=== PATIENT | female | born 1975 | race Caucasian/White ===

== ENCOUNTER → 2023-09-15 13:54 | Outpatient (REF) | payer OTHER, SELFPAY | LOC: HWWDC 13:54 | PROVIDERS: ATTENDING PHYSICIAN Obstetrics & Gynecology Gynecology; FAMILY PHYSICIAN Physician Assistant Medical | DX: Z12.31 Encounter for screening mammogram for malignant neoplasm of breast (principal) | CPT/HCPCS: 77063; 77067 ==

== ENCOUNTER 2023-11-03 15:54 | Day surgery (SDC) | payer OTHER, SELFPAY ==
[2023-11-03] VITALS (10 sets, daily range): BP systolic 92–126; BP diastolic 52–89
[2023-11-03 12:22] LABS: % Basophils 0.7 % (0-2); % Eosinophils 2.8 % (0-6); % Immature Granulocytes 0.3 % (0-0.5); % Lymphocytes 19.2 % (20.5-51.1); % Monocytes 8.7 % (1.7-9.3); % Neutrophils 68.3 % (42.2-75.2); Absolute Basophils 0.1 10^3/uL (0-0.2); Absolute Eosinophils 0.3 10^3/uL (0-0.7); Absolute Lymphocytes 2.2 10^3/uL (1.2-3.4); Absolute Neutrophils 7.8 10^3/uL (1.4-6.5); Hematocrit 36.8 % (37.0-47.0); Hemoglobin 12.3 g/dL (12.0-16.0); Mean Corp Hgb Conc. 33.4 g/dL (33.0-37.0); Mean Corpuscular Hgb 28.9 pg (27.0-31.0); Mean Corpuscular Volume 86.4 fL (81.0-99.0); Mean Platelet Volume 9.2 fL (7.4-10.4); Nucleated Red Blood Cells % 0 %; Platelet Count 269 10^3/uL (130-400); Red Blood Cell Count 4.26 10^6/uL (4.20-5.40); Red Cell Dist. Width 13.6 % (11.5-14.5); White Blood Cell Count 11.5 10^3/uL (4.8-10.8)
--- NOTE | 2023-11-03 12:29 | ED.GENMED ---
History of Present Illness
General
Chief Complaint: Abdominal Pain
Source: patient
Exam Limitations: none
Time Seen by Provider: 11/03/23 12:29
Nursing documentation reviewed up to this point in time: agreed with
Travel History
Have you had any contact with someone who has COVID-19?: No
Do you have any symptoms of coronavirus? Fever > 100 degrees, chills, cough, shortness of breath, sore throat, loss of taste or smell, muscle aches, or headache?: No
History of Present Illness
History of Present Illness:
This is a 48-year-old female with past medical history of hypothyroidism, migraine disorder presenting emergency department today with concerns of right-sided lower abdominal pain that radiates to the back as well as burning with urination for the
past 3 days. Patient has had nausea and vomiting with this and notes a fever of 102 at 3 AM this morning. Patient has taken Tylenol at 5 AM and ibuprofen at 9 AM today. Patient also took Azo today to help with the burning sensation. Patient went
to see her primary care provider today who sent her to the emergency department for concerns of possible appendicitis. Patient states that she has a past abdominal surgical history of a left nephrectomy and but denies any other abdominal
surgeries. Patient denies any constipation or diarrhea. Patient denies melena.
Past History
Past History
ED Past Medical History: None
ED Past Surgical History: None
Social History
Personal:
Living: with family
Review of Systems
Review of Systems
All Other Systems: ROS reviewed and negative except as documented in HPI and ROS
Phy Exam
Physical Exam
Physical Exam:
General: Patient is well appearing and in no acute distress; non-toxic
Skin: Warm and dry, no rashes or lesions
Head: Normocephalic, atraumatic
Eyes: Sclera non-icteric. EOMs intact. PERRLA.
Cardiac: Regular rate and rhythm, no murmurs
Peripheral Vascular: No lower extremity swelling or edema
Pulm: Normal respiratory effort, no wheezes, rales, or rhonchi.
Abdomen: Patient has moderate right-sided abdominal tenderness with guarding present as well as positive left-sided rebound tenderness. No CVA tenderness. No palpable masses
Musculoskeletal: No CVA tenderness bilaterally. No tenderness palpation of the para lumbar muscles
Neuro: CN II-XII intact, no focal neurologic deficits. PERRLA.
Psychiatric: Appropriate mood and affect.
Course
Orders/Labs/Results
Orders:
Orders
11/03/23 11:00
Test Result ONCE
11/03/23 12:04
Complete Blood Count/With Diff Urgent
Comprehensive Metabolic Panel Urgent
HCG, Serum Qualitative Screen Urgent
Lipase Urgent
Urinalysis Reflex To Culture Urgent
Date Specimen was Collected: 11/03/23
Time Specimen was Collected: 11:00
Urine Microscopic Reflex Cult Urgent
Urine Culture Urgent
ROBLES Source: U
Specimen Description:
Date Specimen was Collected: 11/03/23
Time Specimen was Collected: 11:00
11/03/23 12:47
0.9% Sodium Chloride 500 ml [Nss] 500 ml IV BOLUS
Ketorolac [Toradol] 15 mg IV NOW STA
Ondansetron Injectable [Zofran] 4 mg IV NOW STA
11/03/23 13:28
CT Abd/pelvis W Iv Cont Urgent
Comment:
Reason For Exam: RLQ pain
11/03/23 15:25
Dexamethasone Sod Phosphate [Decadron] 20 mg .ROUTE .STK-MED ONE
Lidocaine HCl/Pf [Xylocaine-Mpf 1% Vial] 50 mg .ROUTE .STK-MED ONE
Ondansetron Injectable [Zofran] 4 mg .ROUTE .STK-MED ONE
Propofol [Diprivan] 20 ml .ROUTE .STK-MED
Rocuronium [place] [Rocuronium] 50 mg .ROUTE .STK-MED ONE
11/03/23 15:38
HYDROmorphone [Dilaudid] 0.25 mg IV PACU-Q5MPRN PRN
HYDROmorphone [Dilaudid] 0.5 mg IV PACU-Q5MPRN PRN
Ondansetron Injectable [Zofran] 4 mg IV PACU-ONCEPRN PRN
Prochlorperazine [Compazine] 5 mg IV PACU-ONCEPRN PRN
Notify MD As Directed
Notify physician if: for SDS patients with known or suspected sleep obstructive sleep apnea, monitor in the
PACU.
Notify MD for any apneic/desaturation episodes
O2 Therapy [RESP] Urgent
Titrate/Wean O2 to maintain O2 sat greater than (%): 92
Special Instructions: -Provide supplemental oxygen to achieve O2 sat of 92% or greater.
-After 15 min, may wean O2 and discontinue if patient is able to maintain O2 sat of 92%
or greater during recovery period.
If patient is a discharge home, without oxygen therapy, notify anestheiologist if
unable to maintain O2 SAT of 92% or greater on room air for MD clearance.
11/03/23 15:42
Bupivacaine Mpf 0.25% [Sensorcaine-Mpf 0.25% Vial] 30 ml .ROUTE .STK-MED ONE
Bupivacaine Pf 0.5% [Sensorcaine 0.5% Single Dose] 30 ml .ROUTE .STK-MED ONE
Midazolam HCl [Versed] 2 mg .ROUTE .STK-MED ONE
11/03/23 15:43
Fentanyl Citrate/Pf [Sublimaze] 100 mcg .ROUTE .STK-MED ONE
11/03/23 15:45
Normosol (Mult Electrolytes) [Normosol-R] 1,000 ml IV PER PROTOCOL
11/03/23 15:48
Piperacillin/Tazo 3.375 Gram [Zosyn] 3.375 gram in 50 ml IV NOW
11/03/23 15:49
Piperacillin/Tazo 3.375 Gram [Zosyn] 3.375 gram in 50 ml .ROUTE .STK-MED
11/03/23 16:00
Normosol (Mult Electrolytes) [Normosol-R] 1,000 ml IV PER PROTOCOL
11/03/23 16:16
Piperacillin/Tazo 3.375 Gram [Zosyn] 3.375 gram in 50 ml IV NOW
11/03/23 16:19
HYDROmorphone [Dilaudid] 0.25 mg IV PACU-Q5MPRN PRN
HYDROmorphone [Dilaudid] 0.5 mg IV PACU-Q5MPRN PRN
Ondansetron Injectable [Zofran] 4 mg IV PACU-ONCEPRN PRN
Prochlorperazine [Compazine] 5 mg IV PACU-ONCEPRN PRN
11/03/23 16:30
HYDROmorphone [Dilaudid] 1 mg .ROUTE .STK-MED ONE
11/03/23 16:34
Acetaminophen 1000MG/100Ml [Ofirmev] 1,000 mg in 100 ml .ROUTE .STK-MED
11/03/23 16:37
Sugammadex Sodium [Bridion] 200 mg .ROUTE .STK-MED ONE
11/03/23 16:43
OR Pathology Routine
Pre-Operative Diagnosis: appendicitis
Operative Procedure: laparoscopic appendectomy
Surgeon: janell
Circulating Nurse: thaddeus
Specimen Type: appendix
11/03/23 16:59
Discharge Patient As Directed
11/03/23 18:00
Acetaminophen [Tylenol] 650 mg PO SDS-Q4HPRN PRN
Ondansetron Injectable [Zofran] 4 mg IV SDS-ONCEPRN PRN
Oxycodone [Roxicodone] 10 mg PO SDS-Q4HPRN PRN
Oxycodone [Roxicodone] 5 mg PO SDS-Q4HPRN PRN
Abnormal Lab Results
11/03/23
12:04
WBC 11.5 H 10^3/uL
(4.8-10.8)
Hct 36.8 L %
(37.0-47.0)
Absolute Neuts (auto) 7.8 H 10^3/uL
(1.4-6.5)
Absolute Monos (auto) 1.0 H 10^3/uL
(0.1-0.6)
Lymphocytes % 19.2 L %
(20.5-51.1)
Ur Occult Blood Reflex Trace A
(Negative)
Urine Nitrite (Reflex) Positive A
(Negative)
Urine Bilirubin 3+ A
(Negative)
Urine Urobilinogen 4+ A
(Neg - 1+)
Urine RBC 7-10 A /HPF
(0-2)
Urine Bacteria (Reflex) Few A
(Negative)
11/03/23 12:04
11/03/23 12:04
Vital Signs
Initial and Last Documented VS:
Initial Vital Signs
Temp Pulse Resp BP Pulse Ox
98.5 F 68 18 126/75 99
11/03/23 10:57 11/03/23 10:57 11/03/23 10:57 11/03/23 10:57 11/03/23 10:57
Last Documented Vital Signs
Temp Pulse Resp BP Pulse Ox
97.7 F 57 16 111/67 99
11/03/23 17:50 11/03/23 18:26 11/03/23 18:26 11/03/23 18:26 11/03/23 18:26
MDM/Problems Addressed
Differential Diagnosis Includes:
Differentials include infected nephrolithiasis, acute cystitis, pyelonephritis, appendicitis, gastroenteritis colitis
MDM/Problems Addressed:
Abdominal pain
Chronic conditions affecting care:
Hypothyroidism, migraine disorder
Acute Exacerbation and/or Progression of Chronic Illness:
n/a
*Pulse Oximetry
Patient hypoxic: no
*Critical Care Note
Total Time (30-74mins, 75-104mins- exclusive of procedures): Not Applicable
Data Reviewed
Review of Other/Old Records Reveals: Records (Reviewed ER physician documentation from 01/11/2010) and Discharge Summary (No discharge summaries to review)
Source: patient and records
Patient Management
Escalation/DeEscalation of care consider admission/obs:
This is a 48-year-old female with past medical history of hypothyroidism, migraine disorder presenting emergency department today with concerns of right-sided lower abdominal pain that radiates to the back as well as burning with urination for the
past 3 days. Patient found to have appendicitis as well as a UTI on urinalysis. Patient stable, she is afebrile. Surgery aware, patient's last meal was last night, patient is going to the OR today and will be admitted under surgery service,
surgery will consult medicine consult for management of UTI. Patient agreement with plan.
ED Attending Note
-
Portions of this chart may have been created with voice recognition software.� Occasional wrong word or��sound alike� substitutions may have occurred due to the inherent limitations of voice recognition software.
Discharge Plan
Departure
Patient Disposition: Admit
Date of Disposition: 11/03/23
Time of Disposition: 15:45
Admit to: OR
Admit to doctor: Dr. Rand
Presentation/result/management discussed w/ accepting MD/DO: Dr. Rand
Patient with high blood pressure during this ER visit?: Yes
Condition: Fair
Discharge Problem:
Acute appendicitis
Interventions
Interventions:
*Risk Screen - Suicide Last Done: 11/03/23 10:59
*General Assessment Last Done: 11/03/23 10:59
*Neglect/Abuse Screening Last Done: 11/03/23 10:59
*Nursing Disposition Last Done: 11/03/23 15:53
LF-Eaiuth-Sicznrmzox Assessment Last Done: 11/03/23 14:00
Discharge Date and Time
Discharge Date/Time: 11/03/23 15:54
[2023-11-03 12:39] LABS: HCG, Serum Qualitative Screen Negative; Urine Albumin Trace (Neg - Trace); Urine Bilirubin 3+ (Negative); Urine Character Clear (Clear); Urine Glucose Negative (Negative); Urine Ketone Negative (Negative); Urine Leukocyte Negative (Negative); Urine Nitrite Positive (Negative); Urine Occult Blood Trace (Negative); Urine Urobilinogen 4+ (Neg - 1+)
[2023-11-03 12:44] LABS: Urine Color Orange
[2023-11-03 12:46] LABS: ALT (SGPT) 21 U/L (0-35); AST (SGOT) 26 U/L (14-36); Albumin 4.3 g/dl (3.5-5.0); Alkaline Phosphatase 77 U/L (38-126); Blood Urea Nitrogen 13 mg/dl (7-17); Calcium 9.6 mg/dl (8.4-10.2); Carbon Dioxide 30 mmol/L (22-30); Chloride 102 mmol/L (98-107); Glucose 83 mg/dl (70-99); Lipase 161 U/L (23-300); Potassium 4.3 mmol/L (3.5-5.1); Sodium 138 mmol/L (135-145); Total Bilirubin 0.4 mg/dl (0.2-1.3); Total Protein 6.8 g/dl (6.3-8.2); eGFR > 60.00
[2023-11-03 12:57] LABS: Urine Squamous Cell >30 /LPF (Few)
[2023-11-03 12:59] LABS: Urine Bacteria Few (Negative)
[2023-11-03] MEDS: NSS 500 IV (13:08)
[2023-11-03] MEDS: ZOFRAN 4 MG IV (13:08)
[2023-11-03] MEDS: TORADOL 15 MG IV (13:10)
--- NOTE | 2023-11-03 16:45 | CON.GS ---
Consultation
-
Requesting Provider: Daniel
Performing Provider: Keyona
Reason for Consultation: Acute appendicitis
Medical History
-
Chief Complaint: Abd pain
History of Present Illness:
48F with acute onset right-sided lower abdominal pain that radiates to the back as well as burning with urination for the past 3 days. Patient has had nausea and vomiting with this and notes a fever of 102 at 3 AM this morning. Patient has taken
Tylenol at 5 AM and ibuprofen at 9 AM today, which helped the fever and provided little relief from pain. Patient also took Azo today to help with the burning sensation. Patient went to see her primary care provider today who sent her to the
emergency department for concerns of possible appendicitis.
Past Medical History
Past Medical History: Other (hypothyroidism, migraine disorder, recurrent UTI)
Past Surgical History: and Gynecological (left laparoscopic oophorectomy)
Social History
Tobacco: Non-Smoker
Alcohol: None
Drug: None
Personal:
Living: With Family
Family History
Family History: Reviewed & Noncontributory
Allergies / Home Medications
Allergy/AdvReac Type Severity Reaction Status Date / Time
aspirin [Aspirin] Allergy stomach Verified 11/03/23 10:56
pain
�Medication �Instructions �Recorded �Confirmed �Type
levothyroxine 50 mcg tablet 50 mcg PO DAILY 11/25/21 12/02/21 History
sertraline 25 mg tablet 25 mg PO PRN PRN depression 11/25/21 12/02/21 History
Review of Systems
-
A 10 point review of systems was completed, and was negative except as per HPI.
Physical Exam
Vital Signs
Temp Pulse Resp BP Pulse Ox
98.5 F 68 18 126/75 99
11/03/23 10:57 11/03/23 10:57 11/03/23 10:57 11/03/23 10:57 11/03/23 10:57
Lab Results
11/03/23 12:04
11/03/23 12:04
WBC 11.5 10^3/uL (4.8-10.8) H 11/03/23 12:04
Hgb 12.3 g/dL (12.0-16.0) 11/03/23 12:04
Hct 36.8 % (37.0-47.0) L 11/03/23 12:04
Plt Count 269 10^3/uL (130-400) 11/03/23 12:04
Abs Immat Gran (auto) 0.0 10^3/uL (0-0.05) 11/03/23 12:
Neutrophils % 68.3 % (42.2-75.2) 11/03/23 12:04
Physical Exam
General: Well Developed, Well Nourished and No Apparent Distress
GI: Soft, Non Distended and Tender (RLQ ttp)
Neuro: AO x 3
Psych: Calm
Data Reviewed
-
CT Scan: Image Personally Visualized and interpreted, Report Reviewed by me, Discussed with Physician, Discussed with Patient and Discussed with Family
Labs: Labs Reviewed by me, Discussed with Physician, Discussed with Patient and Discussed with Family
Old Records: Reviewed
Assessment / Plan
-
48F with acute appendicitis
Leukocytosis noted
Fever overnight, none at the hospital
CT with enlarged appendix with stranding, no signs of perforation
UA concerning for UTI (nitrite +)
OCTOR for lap appy
IV zosyn
--- NOTE | 2023-11-03 16:51 | OR.RPT ---
Operative Report
Operative Report
Primary Surgeon: Keyona
Pre-op Diagnosis: Acute appendicitis
Post-op Diagnosis: Same
Procedure Performed: Laparoscopic appendectomy
Anesthesia Type: GETA
Specimen / Cultures: Appendix
Estimated Blood Loss: 10cc
Complications: None immediate
Operative Findings: Inflamed non perforated appendix coiled at anterior cecum, scant clear serous fluid in the pelvis suctioned
Date of Surgery: 11/03/23
Indications: This 48F developed right lower quadrant abdominal pain and on workup was found to have acute appendicitis. Laparoscopic appendectomy was elected.
Description of procedure: The patient was placed on the operating table in the supine position. General anesthesia was induced. A time-out was completed verifying correct patient, procedure, site, positioning, and special equipment prior to
beginning this procedure. An orogastric tube was placed. The abdomen was prepped and draped in the usual sterile fashion. A stab incision was made in left upper quadrant and the Veress needle was inserted. Proper position was confirmed by aspiration
and saline meniscus test. The abdomen was insufflated with carbon dioxide to a pressure of 12 mmHg. The patient tolerated insufflation well.
A 5mm optical trocar was then inserted at the left lower quadrant. The laparoscope was inserted and the abdomen inspected. No injuries from initial trocar placement or Veress needle insertion were noted. Additional trocars were then inserted in the
following locations: a 12-mm trocar at the umbilicus and a 5-mm trocar midline in the suprapubic space. The abdomen was inspected and no abnormalities were found. The table was placed in the Trendelenburg position with the right side up. The
appendix was inflamed without signs of perforation or purulence, it was curled at the anterior cecum and the tip was adherent to the lateral cecal wall. The tip of the appendix was gently bluntly freed up from the cecum and grasped with an
atraumatic grasper and retracted toward the patient�s feet and abdominal wall. This maneuver exposed the appendiceal blood supply which was controlled with the Ligasure device. Following this, a laparoscopic linear cutting stapler with a 45mm bowie
load was deployed and used to transect the appendix at its base. The appendix was placed in an endoscopic retrieval bag, removed through the umbilical port, and passed off the table as a specimen.
We then turned our attention to the staple line, which was noted to be hemostatic. Scant clear serous fluid was suctioned from the pelvis. The umbilical trocar site was closed at the fascial level laparoscopically with 2-0 PDS under direct vision.
Secondary trocars were removed under direct vision and noted to be hemostatic. The laparoscope was withdrawn and the abdomen was allowed to collapse. The skin was closed with subcuticular sutures of 4-0 monocryl and topical skin adhesive. The
orogastric tube was removed.
The patient tolerated the procedure well and was taken to the postanesthesia care unit in stable condition.
--- NOTE | 2023-11-03 16:53 | W.DS.TRANS ---
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
-
Discharge Instructions:
Instructions:
Stand-Alone Forms:
Changes to Home Medications: No
Discharge Medications:
DC Medications w/original date entered in [facility]
levothyroxine 50 mcg tablet 50 mcg PO DAILY 11/25/21
sertraline 25 mg tablet 25 mg PO PRN PRN depression 11/25/21
Home Medication Changes
Pending Results: No
--- NOTE | 2023-11-03 17:13 | SUR.PHASEI ---
Upon arrival, RN assess nontender/palpable mass at site of umbilicus, MD Rand notified and at bedside for assessment. Made patient and RN aware of a probable hematoma and normal finding post-op, explained to patient to expect bruising around the
umbilicus. Pt. remains hemodynamically stable and not indorsing any pain or discomfort at this time. 11/02/2024 1700
== END 2023-11-03 18:36 | disposition home or self-care (01) ==
LOC: SDS 15:54
PROVIDERS: ATTENDING PHYSICIAN Surgery; EMERGENCY PHYSICIAN Emergency Medicine; FAMILY PHYSICIAN Physician Assistant Medical
DX: K35.80 Unspecified acute appendicitis (principal); R10.31 Right lower quadrant pain
CPT/HCPCS: 44950; 88304; 74177; 80053; 81003; 81015; 83690; 84703; 85025; 87086; 96374; 96375; 99285; Q9967

== ENCOUNTER → 2024-09-27 08:02 | Outpatient (REF) | payer OTHER, SELFPAY | LOC: HWWDC 08:02 | PROVIDERS: ATTENDING PHYSICIAN Obstetrics & Gynecology Gynecology; FAMILY PHYSICIAN Physician Assistant Medical | DX: Z12.31 Encounter for screening mammogram for malignant neoplasm of breast (principal) | CPT/HCPCS: 77063; 77067 ==

== ENCOUNTER → 2025-01-26 13:16 | Outpatient (REF) | payer OTHER, SELFPAY | LOC: RAD 13:16 | PROVIDERS: ATTENDING PHYSICIAN Physician Assistant Medical | DX: R74.8 Abnormal levels of other serum enzymes (principal); R10.9 Unspecified abdominal pain | CPT/HCPCS: 74160; Q9967 ==